=== PATIENT | female | born 1995 ===

== ENCOUNTER 2017-09-29 18:57 | Emergency (ER) | payer OTHER ==
[~2017-09-29] VITALS: Ht 175.3 cm; Wt 83.9 kg
[2017-09-29] MEDS ORDERED: ZYRTEC10 MG PO (20:49)
[2017-09-29] MEDS ORDERED: NEOSPORIN + P14.2 GM TOP (20:52)
== END 2017-09-29 21:29 | disposition home or self-care (01) ==
LOC: ER 18:57
DX: S50.871A Other superficial bite of right forearm, initial encounter (principal); W57.XXXA Bitten or stung by nonvenomous insect and other nonvenomous arthropods, initial encounter; Y93.89 Activity, other specified; Y92.89 Other specified places as the place of occurrence of the external cause; Y99.8 Other external cause status

== ENCOUNTER 2019-04-08 22:07 | Emergency (ER) | payer OTHER ==
[~2019-04-08] VITALS: Ht 175.3 cm; Wt 98.9 kg
[~2019-04-08 22:07] MED LIST: NEOSPORIN + P14.2 GM TOP; ZYRTEC10 MG PO
== END 2019-04-09 09:42 | disposition home or self-care (01) ==
LOC: ER 22:07
DX: O03.1 Delayed or excessive hemorrhage following incomplete spontaneous abortion (principal); Z34.01 Encounter for supervision of normal first pregnancy, first trimester

== ENCOUNTER 2019-09-27 11:56 | Emergency (ER) | payer OTHER ==
[~2019-09-27] VITALS: Ht 180.3 cm; Wt 101.2 kg
== END 2019-09-27 15:24 | disposition home or self-care (01) ==
LOC: ER 11:56
DX: O26.851 Spotting complicating pregnancy, first trimester (principal); O36.80X1 Pregnancy with inconclusive fetal viability, fetus 1; O34.11 Maternal care for benign tumor of corpus uteri, first trimester; Z3A.01 Less than 8 weeks gestation of pregnancy

== ENCOUNTER 2019-10-09 13:13 | Emergency (ER) | payer OTHER ==
[~2019-10-09] VITALS: Ht 175.3 cm; Wt 102.5 kg
== END 2019-10-09 19:37 | disposition home or self-care (01) ==
LOC: ER 13:13
DX: O26.891 Other specified pregnancy related conditions, first trimester (principal); R10.2 Pelvic and perineal pain; Z03.818 Encounter for observation for suspected exposure to other biological agents ruled out; Z3A.09 9 weeks gestation of pregnancy